=== PATIENT | male | born 1990 ===

== ENCOUNTER 2016-07-07 23:58 | Inpatient (IN) | payer OTHER ==
[2016-07-08 01:18] VITALS: BMI 22.4
[2016-07-08] MEDS ORDERED: Sodium Chloride 0.9% 1,000 ML IV STA (01:22)
[2016-07-08] MEDS ORDERED: Morphine 4 mg/ml ISec IVP STA ×2 (01:22→04:22)
[2016-07-08] MEDS ORDERED: Vancomycin 500 mg Inj IVPB STA (01:22)
[2016-07-08] MEDS ORDERED: Ampicillin/Sulbactam 3 GM in Sodium Chloride 0.9% 100 ML IVPB STA (01:22)
[2016-07-08] MEDS ORDERED: Vancomycin 1gm in NS 250ml 250 ML IVPB STA (01:29)
--- NOTE | 2016-07-08 01:29 | ED PDOC ---
Arrival/HPI - General Chief Complaint: Abnormal Skin Integrity Time Seen by Provider: 07/08/16 01:11 Historian: Patient - History of Present Illness Narrative History of Present Illness (Text): 07/08/16 01:22 Gumaro Ann is a 25 year old male, with no significant past medical history, presents to the emergency department complaining of 2 day duration of abscesses to b/l buttock region. Reports of redness and pain to the area which is worsened while sitting down. 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 He also complaining of swelling of inguinal lymph nodes. Denies any swelling to the penis or the scrotum. Denies fever, chills, headache, nausea, vomiting, diarrhea, or any other complaints at this time. Time/Duration: < week (2 days ) Symptom Onset: Gradual Symptom Course: Worsening Severity Level: Moderate Activities at Onset: Light Past Medical History - Provider Review Nursing Documentation Reviewed: Yes - Psychiatric Hx Substance Use: No Family/Social History - Physician Review Nursing Documentation Reviewed: Yes Family/Social History: No Known Family HX Smoking Status: Never Smoked Hx Alcohol Use: No Hx Substance Use: No Allergies/Home Meds Allergies/Adverse Reactions: Allergies No Known Allergies Allergy (Verified 07/08/16 11:45) Home Medications: Home Meds Medication Instructions Recorded Confirmed No Known Home Med 07/08/16 07/08/16 Review of Systems - Physician Review All systems were reviewed & negative as marked: Yes - Review of Systems Constitutional: Normal. absent: Fatigue, Fevers Respiratory: Normal. absent: SOB, Cough Gastrointestinal: Normal. absent: Abdominal Pain, Diarrhea, Nausea, Vomiting Musculoskeletal: Other (b/l buttock abscesses ) Neurological: Normal. absent: Headache, Dizziness Psychiatric: Normal Physical Exam Vital Signs Reviewed: Yes Vital Signs Temp Pulse Resp BP Pulse Ox 07/08/16 05:49 85 18 106/60 95 07/08/16 04:15 105 H 12 132/75 96 07/08/16 03:15 92 H 14 97/51 L 99 07/08/16 01:15 100.2 F H 100 H 18 128/63 99 Temperature: Afebrile Blood Pressure: Normal Pulse: Tachycardic Respiratory Rate: Normal Appearance: Positive for: Well-Appearing, Non-Toxic, Comfortable Pain Distress: None Mental Status: Positive for: Alert and Oriented X 3 - Systems Exam Head: Present: Atraumatic, Normocephalic Pupils: Present: PERRL Conjunctiva: Present: Normal Respiratory/Chest: Present: Clear to Auscultation, Good Air Exchange. No: Respiratory Distress, Accessory Muscle Use Cardiovascular: Present: Regular Rate and Rhythm, Normal S1, S2. No: Murmurs Upper Extremity: Present: Other (area of 12 cm diameter erythema with central draining punctum on b/l buttock ) Neurological: Present: GCS=15, CN II-XII Intact, Speech Normal Skin: Present: Warm, Dry, Normal Color. No: Rashes Psychiatric: Present: Alert, Oriented x 3, Normal Insight, Normal Concentration Medical Decision Making ED Course and Treatment: 07/08/16 01:32 Impression: A 25 year old male who presents to the emergency department complaining of abscesses to bilateral buttocks. Plan: -- Labs -- Morphine -- IV fluids -- Unasyn -- Vancomycin -- Blood culture -- Reassess and disposition Progress Notes: 07/08/16 03:50 Case discussed with who accepts patient under his service with on consult. 07/08/16 04:21 Procedure: Incision & Drainage Performed by the emergency provider Indication: Abscess Location: buttock Preparation: The area was prepped and draped in the usual sterile fashion and was cleansed with chlorhexidine. Local infiltration of Lidocaine 1% with Epi was used for anesthesia. Procedure: The most fluctuant portion of the abscess was incised with a #11 scalpel. Large amt purulent drainage. A dressing was applied Post-Procedure: On exam the abscess is notably less fluctuant. The patient tolerated the procedure well, and there were no complications. culture sent - Lab Interpretations Microbiology Results: Microbiology Results 07/08/16 02:17 Blood-Venous Blood Culture - Preliminary NO GROWTH AFTER 48 HOURS 07/08/16 01:42 Blood-Venous Blood Culture - Preliminary NO GROWTH AFTER 48 HOURS Lab Results: 07/08/16 01:42 07/08/16 01:42 Lab Results 07/08/16 01:42: WBC 20.9 H, RBC 4.47, Hgb 14.3, Hct 41.3 L, MCV 92.4, MCH 32.0, MCHC 34.6, RDW 13.1, Plt Count 208, MPV 9.2, Neutrophils % (Manual) 75 H, Band Neutrophils % 2, Lymphocytes % (Manual) 16 L, Monocytes % (Manual) 7 H, Platelet Evaluation Normal, pO2 30, VBG pH 7.35, VBG pCO2 51.0, VBG HCO3 28.2 H , VBG Total CO2 29.8 H, VBG O2 Sat (Calc) 59.0, VBG Base Excess 1.7, VBG Potassium 4.0, Glucose 110, Lactate 1.3, FiO2 21.0, Sodium 135.0, Potassium 4.1 , Chloride 102.0, Carbon Dioxide 28, Anion Gap 13, BUN 9, Creatinine 1.0, Est GFR ( Amer) > 60, Est GFR (Non-Af Amer) > 60, Random Glucose 110, Calcium 9.3, Total Bilirubin 0.9, AST 21, ALT 30, Alkaline Phosphatase 54, Total Protein 8.1, Albumin 4.4, Globulin 3.7, Albumin/Globulin Ratio 1.2, Venous Blood Potassium 4.0 - Medication Orders Current Medication Orders: Acetaminophen (Tylenol 325mg Tab) 650 mg PO Q4 PRN PRN Reason: Fever >100.4 F Last Admin: 07/09/16 06:08 Dose: 650 MG [facility] Pain/Vitals Document 07/09/16 06:08 STO (Rec: 07/09/16 06:09 [place] [id number]) Presence of Pain Presence of Pain Yes Pain Scale Used Pain Scale Used Numeric Location Left, Right or Bilateral Bilateral Description Constant Pain Behavior Facial Grimacing Re-Assess: [facility] Pain/Vitals Document 07/09/16 07:08 RADHA (Rec: 07/09/16 19:59 [place] [id number]) Pain Reassessment Is This A Pain ReAssessment? Yes Sleep Is patient sleeping during reassessment? No Presence of Pain Presence of Pain No Acetaminophen (Tylenol 325mg Tab) 650 mg PO Q4H PRN PRN Reason: Pain, moderate (4-7) Ampicillin Sodium/Sulbactam (Sodium 3 gm/ Sodium Chloride) 100 mls @ 200 mls/ hr IVPB Q6 MELISSA PRN Reason: Protocol Last Admin: 07/10/16 16:59 Dose: 200 MLS/HR eMAR Start Stop Document 07/10/16 16:59 RADHA (Rec: 07/10/16 17:00 RADHA [email or web address]) Intravenous Solution Start Date 07/10/16 Start Time 17:00 End Date 07/10/16 End time 17:30 Total Infusion Time 30 Vancomycin HCl (Vancomycin 1gm) 250 mls @ 167 mls/hr IVPB DAILY MELISSA PRN Reason: Protocol Last Admin: 07/10/16 09:00 Dose: 167 MLS/HR eMAR Start Stop Document 07/10/16 09:00 RADHA (Rec: 07/10/16 09:00 RADHA [email or web address]) Intravenous Solution Start Date 07/10/16 Start Time 09:00 End Date 07/10/16 End time 10:30 Total Infusion Time 90 Sodium Chloride (Sodium Chloride 0.9%) 1,000 mls @ 60 mls/hr IV .[id number] MELISSA Discontinued Medications Ampicillin Sodium/Sulbactam (Sodium 3 gm/ Sodium Chloride) 100 mls @ 100 mls/ hr IVPB STAT STA PRN Reason: Protocol Stop: 07/08/16 02:21 Last Admin: 07/08/16 03:54 Dose: 100 MLS/HR eMAR Start Stop Document 07/08/16 03:54 SB (Rec: 07/08/16 03:55 SB [id number]) Intravenous Solution Start Date 07/08/16 Start Time 03:54 End Date 07/08/16 Sodium Chloride (Sodium Chloride 0.9%) 1,000 mls @ 999 mls/hr IV .Q1H1M STA Stop: 07/08/16 02:22 Last Admin: 07/08/16 02:04 Dose: 999 MLS/HR eMAR Start Stop Document 07/08/16 02:04 SB (Rec: 07/08/16 02:04 SB [id number]) Intravenous Solution Start Date 07/08/16 Start Time 02:04 End Date 07/08/16 Vancomycin HCl (Vancomycin 1gm) 250 mls @ 167 mls/hr IVPB STAT STA Stop: 07/08/16 02:58 Last Admin: 07/08/16 02:04 Dose: 167 MLS/HR eMAR Start Stop Document 07/08/16 02:04 SB (Rec: 07/08/16 02:04 SB [id number]) Intravenous Solution Start Date 07/08/16 Start Time 02:04 End Date 07/08/16 Sodium Chloride (Sodium Chloride 0.9%) 1,000 mls @ 100 mls/hr IV .Q10H MELISSA Last Admin: 07/10/16 06:25 Dose: 100 MLS/HR eMAR Start Stop Document 07/10/16 06:25 STOCP (Rec: 07/10/16 06:25 [facility] Intravenous Solution Start Date 07/10/16 Start Time 06:25 Ketorolac Tromethamine (Toradol) 30 mg IVP STAT STA Stop: 07/10/16 08:23 Last Admin: 07/10/16 08:52 Dose: 30 MG MAR Pain Assessment Document 07/10/16 08:52 RADHA (Rec: 07/10/16 08:54 [place] [id number]) Pain Reassessment Is this a pain reassessment? No Sleep Is patient sleeping during reassessment? No Presence of Pain Presence of Pain Yes Pain Scale Used Pain Scale Used Numeric Location Left, Right or Bilateral Bilateral Description Description Constant Intensity of Pain at present 4 Acceptable Level of Pain 0 Pain Behavior Facial Grimacing Aggravating Factors Exercise/Activity Alleviating Factors/Management Medication Techniques IVP Administration Document 07/10/16 08:52 RADHA (Rec: 07/10/16 08:54 [place] [id number]) Charges for Administration # of IVP Administrations 1 Re-Assess: MAR Pain Assessment Document 07/10/16 09:52 RADHA (Rec: 07/10/16 19:35 [place] [id number]) Pain Reassessment Is this a pain reassessment? Yes Sleep Is patient sleeping during reassessment? No Presence of Pain Presence of Pain No Lidocaine/Epinephrine (Lidocaine 1%/Epinephrine 1:[id number] 30 Ml) 20 ml IJ STAT STA Stop: 07/08/16 02:10 Morphine Sulfate (Morphine) 4 mg IVP STAT STA Stop: 07/08/16 01:23 Last Admin: 07/08/16 02:03 Dose: 4 MG MAR Pain Assessment Document 07/08/16 02:03 SB (Rec: 07/08/16 02:04 SB [id number]) Pain Reassessment Is this a pain reassessment? No Sleep Is patient sleeping during reassessment? No Presence of Pain Presence of Pain Yes Pain Scale Used Pain Scale Used Numeric Location Upper or Lower Lower Pain Location Body Site Back Description Description Constant Intensity of Pain at present 7 IVP Administration Document 07/08/16 02:03 SB (Rec: 07/08/16 02:04 SB [id number]) Charges for Administration # of IVP Administrations 1 Morphine Sulfate (Morphine) 4 mg IVP STAT STA Stop: 07/08/16 04:23 Last Admin: 07/08/16 05:07 Dose: Not Given Non-Admin Reason: Patient Refused Pneumococcal Polyvalent Vaccine (Pneumovax 23 Vaccine) 0.5 ml IM .ONCE ONE Stop: 07/08/16 14:27 - Scribe Statement The provider has reviewed the documentation as recorded by the Jonathan Harper Provider Attestation: All medical record entries made by the Fatimahibsarkis were at my direction and personally dictated by me. I have reviewed the chart and agree that the record accurately reflects my personal performance of the history, physical exam, medical decision making, and the department course for this patient. I have also personally directed, reviewed, and agree with the discharge instructions and disposition. Disposition/Present on Arrival - Present on Arrival Any Indicators Present on Arrival: No History of DVT/PE: No History of Uncontrolled Diabetes: No Urinary Catheter: No History of Decub. Ulcer: No History Surgical Site Infection Following: None - Disposition Have Diagnosis and Disposition been Completed?: Yes Diagnosis: Cellulitis and abscess of buttock Disposition: HOSPITALIZED Disposition Time: 03:48 Patient Problems: Current Active Problems Problem Status Diagnosed Cellulitis and abscess of buttock Acute Condition: STABLE
[2016-07-08 02:00] LABS: HEMATOCRIT 41.3 % (42.0-52.0); MEAN CELL VOLUME 92.4 fL (80.0-105.0); MEAN CORPUSCULAR HGB CONC 34.6 g/dl (31.0-37.0); MEAN PLATELET VOLUME 9.2 fl (7.0-11.0); PLATELET COUNT 208 10^3/uL (120.0-450.0); RED CELL DISTRIBUTION WIDTH 13.1 % (11.5-14.5); WHITE BLOOD COUNT 20.9 10^3/ul (4.5-11.0)
[2016-07-08 02:05] LABS: ADD MANUAL DIFF? YES
[2016-07-08 02:06] LABS: VENOUS BLOOD GAS BASE EXCESS 1.7 mmol/L (0.0-2.0); VENOUS BLOOD PH 7.35 (7.32-7.43)
[2016-07-08 02:08] LABS: ALB/GLOB RATIO 1.2 (1.1-1.8); ALKALINE PHOSPHATASE 54 U/L (38-133); ALT/SGPT 30 U/L (7-56); AST/SGOT 21 U/L (15-59); BILIRUBIN,TOTAL 0.9 mg/dL (0.2-1.3); BLOOD UREA NITROGEN 9 mg/dL (7-21); CALCIUM 9.3 mg/dL (8.4-10.5); CARBON DIOXIDE 28 mmol/L (21-33); CHLORIDE 98 mmol/L (98-107); GFR AFRICAN-AMERICAN > 60; GLUCOSE,RANDOM 110 mg/dL (70-110); POTASSIUM 4.1 mmol/L (3.6-5.0); SODIUM 135 mmol/L (132-148); TOTAL PROTEIN 8.1 g/dL (5.8-8.3)
[2016-07-08] MEDS ORDERED: Lidocaine 1%/Epinephrine 1:100000 30 ml vial IJ STA (02:09)
[2016-07-08 02:35] LABS: BAND 2 % (0-2); NEUTROPHIL 75 % (50.0-70.0); PLATELET ESTIMATE NORMAL (NORMAL)
--- NOTE | 2016-07-08 04:12 | CP.PCM.HP ---
<Mark Contreras - Last Filed: 07/08/16 20:25> History of Present Illness - History of Present Illness History of Present Illness: cc: Buttock pain HPI: Patient is a 25yo male with no significant past medical history that presented to the ED c/o buttock pain that started 2 days prior. Patient reported that he had noticed small bumps on his buttocks that he presumed were pimples and would go away on their own. He reported that yesterday he noticed large abscesses on his buttocks that were tender to palpation and made it difficult for him to sit. Patient admitted to shaving in that area on a daily basis. He reported that today he could no longer tolerate the pain and came in for evaluation. He also reported swelling of his inguinal lymph nodes and blood stains on his underwear. He denied pain in his penis or scrotum, fevers, chills , nausea, vomiting, dysuria, frequency, urgency, chest pain, palpitations, SOB. In the ED, he was noted to have a temperature of 100.2, heart rate of 100bpm and leukocytosis of 20.9. 12point ROS as per HPI otherwise negative PMHx: None PSHx: None Allergies: NKDA Family Hx: Noncontributory Social Hx: Former smoker (~5-6cig/day for 4-5 yrs); Social alcohol use; Denies illicit drugs Medications: None Present on Admission - Present on Admission Any Indicators Present on Admission: No Past Patient History - Past Social History Smoking Status: Never Smoked - PSYCHIATRIC Hx Substance Use: No - SURGICAL HISTORY Hx Surgeries: No Meds Allergies/Adverse Reactions: Allergies Allergy/AdvReac Type Severity Reaction Status Date / Time No Known Allergies Allergy Verified 07/08/16 11:45 Physical Exam - Constitutional Appears: Non-toxic, No Acute Distress - Head Exam Head Exam: ATRAUMATIC, NORMAL INSPECTION, NORMOCEPHALIC - Eye Exam Eye Exam: EOMI, PERRL. absent: Conjunctival injection, Scleral icterus - ENT Exam ENT Exam: Mucous Membranes Moist - Neck Exam Neck exam: Positive for: Normal Inspection. Negative for: Lymphadenopathy, Tenderness, Thyromegaly - Respiratory Exam Respiratory Exam: Clear to Auscultation Bilateral. absent: Rales, Rhonchi, Wheezes - Cardiovascular Exam Cardiovascular Exam: RRR, +S1, +S2. absent: Tachycardia, Diastolic murmur, Gallop, JVD, Rubs, Systolic Murmur - GI/Abdominal Exam GI & Abdominal Exam: Normal Bowel Sounds, Soft. absent: Distended, Firm, Guarding, Rebound, Rigid, Tenderness - Extremities Exam Extremities exam: Positive for: normal inspection. Negative for: calf tenderness, pedal edema, tenderness - Back Exam Back exam: NORMAL INSPECTION - Neurological Exam Neurological exam: Alert, CN II-XII Intact, Oriented x3 - Skin Additional comments: multiple indurated, erythematous abscesses on buttocks bilaterally with central draining punctum measuring approximately 5-10 cm in diameter Results - Vital Signs Recent Vital Signs: Last Vital Signs Temp 100.2 F H 07/08/16 01:15 Pulse 100 H 07/08/16 01:15 Resp 18 07/08/16 01:15 BP 128/63 07/08/16 01:15 Pulse Ox 99 07/08/16 01:15 - Labs Result Diagrams: 07/08/16 01:42 07/08/16 01:42 Labs: Laboratory Results - last 24 hr 07/08/16 01:42 WBC 20.9 H RBC 4.47 Hgb 14.3 Hct 41.3 L MCV 92.4 MCH 32.0 MCHC 34.6 RDW 13.1 Plt Count 208 MPV 9.2 Neutrophils % (Manual) 75 H Band Neutrophils % 2 Lymphocytes % (Manual) 16 L Monocytes % (Manual) 7 H Platelet Evaluation Normal pO2 30 VBG pH 7.35 VBG pCO2 51.0 VBG HCO3 28.2 H VBG Total CO2 29.8 H VBG O2 Sat (Calc) 59.0 VBG Base Excess 1.7 VBG Potassium 4.0 Sodium 135 Chloride 98 Glucose 110 Lactate 1.3 FiO2 21.0 Potassium 4.1 Carbon Dioxide 28 Anion Gap 13 BUN 9 Creatinine 1.0 Est GFR ( Amer) > 60 Est GFR (Non-Af Amer) > 60 Random Glucose 110 Calcium 9.3 Total Bilirubin 0.9 AST 21 ALT 30 Alkaline Phosphatase 54 Total Protein 8.1 Albumin 4.4 Globulin 3.7 Albumin/Globulin Ratio 1.2 Venous Blood Potassium 4.0 Assessment & Plan - Assessment and Plan (Free Text) Assessment: 25yo male with no significant past medical history presents c/o multiple buttock abscesses Plan: 1. Buttock abscesses -WBC count of 20.9; temperature of 100.2F -lactate within normal limits -Tylenol 650mg PO q4h PRN for fevers -Patient started on Unasyn 3g IV q6h and Vancomycin 1g qD -Surgery consulted - Dr. Sena -IV NS @ 100/hr Patient to be seen and discussed with attending, Dr. Gu - Date & Time Date: 07/08/16 Time: 04:14 <José Miguel Gu - Last Filed: 08/05/16 09:53> Results - Vital Signs Recent Vital Signs: Last Vital Signs Temp 97.7 F 07/12/16 07:51 Pulse 74 07/12/16 07:51 Resp 20 07/12/16 07:51 BP 105/70 07/12/16 07:51 Pulse Ox 100 07/12/16 07:51 - Labs Result Diagrams: 07/11/16 06:00 07/11/16 06:00 Attending/Attestation - Attestation I have personally seen and examined this patient.: Yes I have fully participated in the care of the patient.: Yes I have reviewed all pertinent clinical information: Yes Notes (Text): 08/05/16 09:53 Medical record note made by the resident after discussion with my direction and input after the patient was personally seen and examined by me. I have reviewed the chart and agree that the record accurately reflects by personal performance of the history, physical exam, data review, and medical decision-making, in the course for the patient. I have also personally directed the plan of care.
[2016-07-08] MEDS: Sodium Chloride 0.9% 1,000 ML IV SCH ×2 (05:07→20:06)
[2016-07-08 05:19] LABS: URINE BILIRUBIN NEGATIVE (NEGATIVE); URINE BLOOD NEGATIVE (NEGATIVE); URINE GLUCOSE (UA) NEGATIVE (NEGATIVE); URINE KETONE TRACE mg/dL (NEGATIVE); URINE LEUKOCYTE ESTERASE NEGATIVE Leu/uL (NEGATIVE); URINE PROTEIN NEGATIVE mg/dL (<30 mg/dL); URINE UROBILINOGEN 0.2 E.U./dL (<1 E.U./dL)
[2016-07-08 05:24] LABS: URINE APPEARANCE CLEAR (CLEAR); URINE COLOR YELLOW (YELLOW)
--- NOTE | 2016-07-08 06:08 | CP.PCM.CON ---
<Dontrell Braun - Last Filed: 07/08/16 05:58> History of Present Illness - History of Present Illness History of Present Illness: General Surgery Consult Note for Dr. Sena CC: Buttock lesion X 2 days HPI: This is a 25M with no PMH who presents to the ED due to painfull swelling on his buttock bilaterally. He reports that it started like a pimple and that yesterday it became increasingly painful. He denies any similar events in the past. He denies any spontaneous draining, denies any fevers chills, chest pain, or SOB at home. In the ED, he had a T100.2, heart rate of 100bpm and leukocytosis of 20.9, the patients buttock wounds were incised and drained in the emergency room by the time the patient was examined. PMHx: None PSHx: None Allergies: NKDA Family Hx: Noncontributory Social Hx: Denies Drugs, Tobacco, Etoh Medications: None Review of Systems - Constitutional Constitutional: absent: Anorexia, Chills - EENT Eyes: absent: Blind Spots, Blurred Vision, Change in Vision Ears: absent: Ear Discharge, Ear Pain, Tinnitus Nose/Mouth/Throat: absent: Nasal Congestion, Nasal Discharge - Cardiovascular Cardiovascular: absent: Chest Pain, Dyspnea - Respiratory Respiratory: absent: Dyspnea, Hemoptysis - Gastrointestinal Gastrointestinal: absent: Bloating, Loose Stools - Neurological Neurological: absent: Abnormal Hearing - Psychiatric Psychiatric: absent: Anxiety Past Patient History - Past Social History Smoking Status: Never Smoked - PSYCHIATRIC Hx Substance Use: No - SURGICAL HISTORY Hx Surgeries: No Meds Allergies/Adverse Reactions: Allergies Allergy/AdvReac Type Severity Reaction Status Date / Time No Known Allergies Allergy Verified 07/08/16 11:45 - Medications Medications: Current Medications Acetaminophen (Tylenol 325mg Tab) 650 mg PO Q4 PRN PRN Reason: Fever >100.4 F Sodium Chloride (Sodium Chloride 0.9%) 1,000 mls @ 100 mls/hr IV .Q10H [facility] Last Admin: 07/08/16 05:07 Dose: 100 mls/hr Ampicillin Sodium/Sulbactam (Sodium 3 gm/ Sodium Chloride) 100 mls @ 200 mls/ hr IVPB Q6 MELISSA PRN Reason: Protocol Vancomycin HCl (Vancomycin 1gm) 250 mls @ 167 mls/hr IVPB DAILY MELISSA PRN Reason: Protocol Physical Exam - Constitutional Appears: Non-toxic, No Acute Distress - Head Exam Head Exam: ATRAUMATIC, NORMOCEPHALIC - Eye Exam Eye Exam: EOMI, Normal appearance - ENT Exam ENT Exam: Mucous Membranes Moist, Normal Exam - Respiratory Exam Respiratory Exam: NORMAL BREATHING PATTERN - Cardiovascular Exam Cardiovascular Exam: +S1, +S2 - Neurological Exam Neurological exam: Alert, Oriented x3 - Psychiatric Exam Psychiatric exam: Normal Affect, Normal Mood - Skin Skin Exam: Dry, Intact Results - Vital Signs Recent Vital Signs: Last Vital Signs Temp 100.2 F H 07/08/16 01:15 Pulse 85 07/08/16 05:49 Resp 18 07/08/16 05:49 BP 106/60 07/08/16 05:49 Pulse Ox 95 07/08/16 05:49 - Labs Result Diagrams: 07/08/16 01:42 07/08/16 01:42 Labs: Laboratory Results - last 24 hr 07/08/16 05:00 Urine Color Yellow Urine Appearance Clear Urine pH 6.0 Ur Specific Bradley 1.020 Urine Protein Negative Urine Glucose (UA) Negative Urine Ketones Trace H Urine Blood Negative Urine Nitrate Negative Urine Bilirubin Negative Urine Urobilinogen 0.2 Ur Leukocyte Esterase Negative Urine Opiates Screen Positive H Urine Methadone Screen Negative Ur Barbiturates Screen Negative Ur Phencyclidine Scrn Negative Ur Amphetamines Screen Negative U Benzodiazepines Scrn Negative U Oth Cocaine Metabols Negative U Cannabinoids Screen Positive H Assessment & Plan - Assessment and Plan (Free Text) Assessment: This is a 25M with no PMH presenting with b/l gluteal abscesses s/p bedside I&D by ER No surgical management at this time Continue medical managment per primary team Will Discuss with Dr. Nathen Braun PGY-1 <Rolando Sena - Last Filed: 07/11/16 10:16> Meds - Medications Medications: Current Medications Acetaminophen (Tylenol 325mg Tab) 650 mg PO Q4 PRN PRN Reason: Fever >100.4 F Last Admin: 07/09/16 06:08 Dose: 650 mg Acetaminophen (Tylenol 325mg Tab) 650 mg PO Q4H PRN PRN Reason: Pain, moderate (4-7) Last Admin: 07/11/16 08:14 Dose: 650 mg Ampicillin Sodium/Sulbactam (Sodium 3 gm/ Sodium Chloride) 100 mls @ 200 mls/ hr IVPB Q6 MELISSA PRN Reason: Protocol Last Admin: 07/11/16 05:42 Dose: 200 mls/hr Vancomycin HCl (Vancomycin 1gm) 250 mls @ 167 mls/hr IVPB DAILY MELISSA PRN Reason: Protocol Last Admin: 07/11/16 09:34 Dose: 167 mls/hr Results - Vital Signs Recent Vital Signs: Last Vital Signs Temp 97.8 F 07/11/16 07:20 Pulse 57 L 07/11/16 07:20 Resp 20 07/11/16 07:20 BP 148/85 07/11/16 07:20 Pulse Ox 99 07/11/16 07:20 - Labs Result Diagrams: 07/11/16 06:00 07/11/16 06:00 Labs: Laboratory Results - last 24 hr 07/11/16 06:00 WBC 8.7 RBC 4.34 Hgb 13.6 L Hct 39.8 L MCV 91.7 MCH 31.3 MCHC 34.2 RDW 12.9 Plt Count 242 MPV 9.5 Sodium 141 Potassium 4.0 Chloride 105 Carbon Dioxide 25 Anion Gap 15 BUN 13 Creatinine 1.0 Est GFR ( Amer) > 60 Est GFR (Non-Af Amer) > 60 Random Glucose 87 Calcium 9.1 Total Bilirubin 0.4 AST 23 ALT 32 Alkaline Phosphatase 49 Total Protein 6.8 Albumin 3.5 Globulin 3.3 Albumin/Globulin Ratio 1.1 Assessment & Plan - Assessment and Plan (Free Text) Assessment: Dx Bilateral buttock abscess-cellulitis(Drained & C/S done) Conservative Rx-await Micro c/s Consult done under my direct supervision Jovanna Sean MD FACS
[2016-07-08 08:08] LABS: ADD MANUAL DIFF? NO
[2016-07-08 08:18] LABS: BASO # 0.04 K/mm3 (0.0-2.0); BASO % 0.2 % (0.0-3.0); EOS # 0.1 (0.0-0.7); EOS % 0.5 % (1.5-5.0); GRAN # 15.11 (1.4-6.5); HEMATOCRIT 39.3 % (42.0-52.0); LYMPH # 1.9 (1.2-3.4); LYMPH % 9.6 % (22.0-35.0); MEAN CELL VOLUME 92.3 fL (80.0-105.0); MEAN CORPUSCULAR HEMOGLOBIN 31.5 pg (25.0-35.0); MEAN CORPUSCULAR HGB CONC 34.1 g/dl (31.0-37.0); MEAN PLATELET VOLUME 9.3 fl (7.0-11.0); MONO # 2.3 (0.1-0.6); MONO % 11.7 % (1.0-6.0); PLATELET COUNT 193 10^3/uL (120.0-450.0); RED CELL DISTRIBUTION WIDTH 13.2 % (11.5-14.5); WHITE BLOOD COUNT 19.4 10^3/ul (4.5-11.0)
[2016-07-08 08:34] LABS: ALB/GLOB RATIO 1.2 (1.1-1.8); ALKALINE PHOSPHATASE 47 U/L (38-133); ALT/SGPT 28 U/L (7-56); AST/SGOT 21 U/L (15-59); BILIRUBIN,TOTAL 1.1 mg/dL (0.2-1.3); BLOOD UREA NITROGEN 7 mg/dL (7-21); CALCIUM 8.9 mg/dL (8.4-10.5); CARBON DIOXIDE 26 mmol/L (21-33); CHLORIDE 103 mmol/L (98-107); GFR AFRICAN-AMERICAN > 60; GLUCOSE,RANDOM 104 mg/dL (70-110); POTASSIUM 4.4 mmol/L (3.6-5.0); SODIUM 137 mmol/L (132-148); TOTAL PROTEIN 7.1 g/dL (5.8-8.3)
[2016-07-08] MEDS: Ampicillin/Sulbactam 3 GM in Sodium Chloride 0.9% 100 ML IVPB SCH ×2 (11:09→17:52)
--- NOTE | 2016-07-08 12:19 | CT ---
CT pelvis without IV contrast Indication: Abscess Technique: Contiguous axial images of the pelvis. No oral or IV contrast given. Coronal and Sagittal reformats generated and reviewed. This CT exam was performed using 1 or more of the falling dose reduction techniques: Automated exposure control, adjustment of the MAA and/or kV according to patient size, and/or use of iterative reconstruction technique. Radiation dose: Total exam DLP = 622.13 mGy-cm. Comparison: None available Findings: The included unenhanced bowel loops appear within normal limits of caliber without evidence of intestinal obstruction. There is no definite free air. Prostate gland measures approximately 3.1 x 4.3 cm. The urinary bladder appears unremarkable. Subcutaneous edema/ cellulitis involving the subcutaneous soft tissues of the right buttock. Subcutaneous edema/cellulitis involving the subcutaneous soft tissues of the lateral left pelvis. No drainable fluid collection or abscess appreciated. No acute osseous abnormality is detected. Impression: Subcutaneous edema/ cellulitis involving the subcutaneous soft tissues of the right buttock. Subcutaneous edema/cellulitis involving the subcutaneous soft tissues of the lateral left pelvis. No drainable fluid collection or abscess appreciated.
[2016-07-08] MEDS ORDERED: Pneumococcal 23-Valent Vaccine IM ONE (14:26)
[2016-07-08] MEDS: Vancomycin 1gm in NS 250ml 250 ML IVPB SCH (15:08)
--- NOTE | 2016-07-08 15:08 | CP.PCM.PCO ---
Physician Communication Note - Physician Communication Note Physician Communication Note: Jamie buttock cellulitis/Abscess(drained)-No further surgery now
[2016-07-09] MEDS: Ampicillin/Sulbactam 3 GM in Sodium Chloride 0.9% 100 ML IVPB SCH ×4 (00:05→17:22)
[2016-07-09] MEDS: Sodium Chloride 0.9% 1,000 ML IV SCH ×2 (06:11→20:47)
[2016-07-09 06:49] LABS: ADD MANUAL DIFF? NO
[2016-07-09 07:03] LABS: ALB/GLOB RATIO 1.1 (1.1-1.8); ALKALINE PHOSPHATASE 49 U/L (38-133); ALT/SGPT 33 U/L (7-56); AST/SGOT 25 U/L (15-59); BILIRUBIN,TOTAL 0.9 mg/dL (0.2-1.3); BLOOD UREA NITROGEN 8 mg/dL (7-21); CALCIUM 8.9 mg/dL (8.4-10.5); CARBON DIOXIDE 27 mmol/L (21-33); CHLORIDE 103 mmol/L (98-107); GFR AFRICAN-AMERICAN > 60; GLUCOSE,RANDOM 90 mg/dL (70-110); POTASSIUM 3.9 mmol/L (3.6-5.0); SODIUM 138 mmol/L (132-148); TOTAL PROTEIN 7.2 g/dL (5.8-8.3)
[2016-07-09 07:17] LABS: BASO # 0.04 K/mm3 (0.0-2.0); BASO % 0.3 % (0.0-3.0); EOS # 0.5 (0.0-0.7); EOS % 3.4 % (1.5-5.0); GRAN # 10.07 (1.4-6.5); GRAN % 71.7 % (50.0-68.0); LYMPH # 1.8 (1.2-3.4); LYMPH % 12.8 % (22.0-35.0); MEAN CELL VOLUME 93.9 fL (80.0-105.0); MEAN CORPUSCULAR HEMOGLOBIN 31.7 pg (25.0-35.0); MEAN CORPUSCULAR HGB CONC 33.8 g/dl (31.0-37.0); MEAN PLATELET VOLUME 9.6 fl (7.0-11.0); MONO # 1.7 (0.1-0.6); MONO % 11.8 % (1.0-6.0); PLATELET COUNT 212 10^3/uL (120.0-450.0); RED CELL DISTRIBUTION WIDTH 13.3 % (11.5-14.5); WHITE BLOOD COUNT 14.1 10^3/ul (4.5-11.0)
--- NOTE | 2016-07-09 10:17 | CP.PCM.PN ---
Subjective - Date & Time of Evaluation Date of Evaluation: 07/09/16 Time of Evaluation: 09:00 - Subjective Subjective: GENERAL SURGERY PROGRESS NOTE FOR DR. FORREST Objective - Vital Signs/Intake and Output Vital Signs (last 24 hours): Temp Pulse Resp BP Pulse Ox 98.5 F 72 20 102/58 L 99 07/09/16 07:54 07/09/16 07:54 07/09/16 07:54 07/09/16 07:54 07/09/16 07:54 Intake and Output: 07/09/16 07/09/16 06:59 18:59 Intake Total 3060 Output Total 1350 Balance 1710 - Medications Medications: Current Medications Acetaminophen (Tylenol 325mg Tab) 650 mg PO Q4 PRN PRN Reason: Fever >100.4 F Last Admin: 07/09/16 06:08 Dose: 650 mg Acetaminophen (Tylenol 325mg Tab) 650 mg PO Q4H PRN PRN Reason: Pain, moderate (4-7) Sodium Chloride (Sodium Chloride 0.9%) 1,000 mls @ 100 mls/hr IV .Q10H MELISSA Last Admin: 07/09/16 06:11 Dose: 100 mls/hr Ampicillin Sodium/Sulbactam (Sodium 3 gm/ Sodium Chloride) 100 mls @ 200 mls/ hr IVPB Q6 MELISSA PRN Reason: Protocol Last Admin: 07/09/16 05:57 Dose: 200 mls/hr Vancomycin HCl (Vancomycin 1gm) 250 mls @ 167 mls/hr IVPB DAILY MELISSA PRN Reason: Protocol Last Admin: 07/08/16 15:08 Dose: 167 mls/hr - Labs Labs: 07/09/16 06:47 07/09/16 06:47 - Constitutional Appears: Non-toxic, No Acute Distress - Head Exam Head Exam: ATRAUMATIC, NORMAL INSPECTION - Eye Exam Eye Exam: EOMI, Normal appearance - Respiratory Exam Respiratory Exam: NORMAL BREATHING PATTERN. absent: Respiratory Distress - Cardiovascular Exam Cardiovascular Exam: +S1, +S2 - GI/Abdominal Exam GI & Abdominal Exam: Soft. absent: Tenderness - Neurological Exam Neurological Exam: Alert, Awake, Oriented x3 - Psychiatric Exam Psychiatric exam: Normal Affect, Normal Mood - Skin Additional comments: Right and left buttock each with abscess and surrounding erythema/cellulitis. Purulent drainage expressed from both abscesses. Assessment and Plan - Assessment and Plan (Free Text) Assessment: 25yo M with bilateral buttock abscesses/cellulitis - Leukocytosis decreasing, WBC 14.1 today - Continue Abx - Purulent drainage was able to be expressed from both areas today on exam. Wound cx taken of each side - Will discuss with Dr. Nathen Wells PGY-2
--- NOTE | 2016-07-09 10:50 | CP.PCM.PN ---
<Yamileth Samuels - Last Filed: 07/09/16 10:50> Subjective - Date & Time of Evaluation Date of Evaluation: 07/09/16 Time of Evaluation: 10:48 - Subjective Subjective: PGY-1 Medicine progress note Patient seen and examined at bedside. No acute distress. Nurse reports no acute events overnight. Patients pain was controlled with tylenol overnight. Patient states that his pain is improved but he continues to have soreness especially with movement. He denies fever, chills, n/v/d/c. Objective - Vital Signs/Intake and Output Vital Signs (last 24 hours): Temp Pulse Resp BP Pulse Ox 98.5 F 72 20 102/58 L 99 07/09/16 07:54 07/09/16 07:54 07/09/16 07:54 07/09/16 07:54 07/09/16 07:54 Intake and Output: 07/09/16 07/09/16 06:59 18:59 Intake Total 3060 Output Total 1350 Balance 1710 - Medications Medications: Current Medications Acetaminophen (Tylenol 325mg Tab) 650 mg PO Q4 PRN PRN Reason: Fever >100.4 F Last Admin: 07/09/16 06:08 Dose: 650 mg Acetaminophen (Tylenol 325mg Tab) 650 mg PO Q4H PRN PRN Reason: Pain, moderate (4-7) Sodium Chloride (Sodium Chloride 0.9%) 1,000 mls @ 100 mls/hr IV .Q10H MELISSA Last Admin: 07/09/16 06:11 Dose: 100 mls/hr Ampicillin Sodium/Sulbactam (Sodium 3 gm/ Sodium Chloride) 100 mls @ 200 mls/ hr IVPB Q6 MELISSA PRN Reason: Protocol Last Admin: 07/09/16 05:57 Dose: 200 mls/hr Vancomycin HCl (Vancomycin 1gm) 250 mls @ 167 mls/hr IVPB DAILY MELISSA PRN Reason: Protocol Last Admin: 07/08/16 15:08 Dose: 167 mls/hr - Labs Labs: 07/09/16 06:47 07/09/16 06:47 - Constitutional Appears: Well, No Acute Distress - Head Exam Head Exam: ATRAUMATIC, NORMOCEPHALIC - Eye Exam Eye Exam: Normal appearance - ENT Exam ENT Exam: Mucous Membranes Moist - Respiratory Exam Respiratory Exam: Clear to Ausculation Bilateral, NORMAL BREATHING PATTERN. absent: Decreased Breath Sounds, Rhonchi, Wheezes, Respiratory Distress - Cardiovascular Exam Cardiovascular Exam: REGULAR RHYTHM. absent: Tachycardia, Murmur - GI/Abdominal Exam GI & Abdominal Exam: Soft, Normal Bowel Sounds. absent: Distended, Firm, Guarding, Rigid, Tenderness - Extremities Exam Extremities Exam: Normal Inspection. absent: Pedal Edema - Neurological Exam Neurological Exam: Alert, Awake, Oriented x3 - Skin Skin Exam: Dry, Intact, Normal Color, Warm - Additional Findings Additional findings: Right and left buttock each with abscess, s/p I&D with surrounding erythema/ cellulitis. Purulent drainage expressed from both abscesses. dressing changed per surgery Assessment and Plan - Assessment and Plan (Free Text) Assessment: 25yo male with no significant past medical history presents with multiple buttock abscesses, mild fever and leukocytosis. Abscesses s/p I&D. CT pelvis showed cellulitis of right buttock, and lateral left pelvis. Plan: 1. Buttock abscesses, bilateral - WBC count on admission was 20.9 with mild fever, WBC decreased to 14 - lactate within normal limits - Tylenol 650mg PO q4h PRN for pain - cont IV Unasyn 3g q6h and Vancomycin 1g qD - IV NS @ 100/hr - CT pelvis showed cellulitis of right buttock, and lateral left pelvis - warm compresses - Surgery following- Dr. Sena <José Miguel Gu - Last Filed: 08/05/16 09:30> Objective - Vital Signs/Intake and Output Vital Signs (last 24 hours): Temp Pulse Resp BP Pulse Ox 97.7 F 74 20 105/70 100 07/12/16 07:51 07/12/16 07:51 07/12/16 07:51 07/12/16 07:51 07/12/16 07:51 - Labs Labs: 07/11/16 06:00 07/11/16 06:00 Attending/Attestation - Attestation I have personally seen and examined this patient.: Yes I have fully participated in the care of the patient.: Yes I have reviewed all pertinent clinical information, including history, physical exam and plan: Yes Notes (Text): 08/05/16 09:30 Medical record note made by the resident after discussion with my direction and input after the patient was personally seen and examined by me. I have reviewed the chart and agree that the record accurately reflects by personal performance of the history, physical exam, data review, and medical decision-making, in the course for the patient. I have also personally directed the plan of care.
[2016-07-09] MEDS: Vancomycin 1gm in NS 250ml 250 ML IVPB SCH (12:23)
--- NOTE | 2016-07-10 00:40 | CP.PCM.PN ---
Subjective - Date & Time of Evaluation Date of Evaluation: 07/10/16 Time of Evaluation: 00:37 - Subjective Subjective: SURGERY NOTE FOR DR. FORREST 25M seen and examined at bedside. Patient continues to admit to pain in the buttock bilaterally. denies fevers, chills. Objective - Vital Signs/Intake and Output Vital Signs (last 24 hours): Temp Pulse Resp BP Pulse Ox 98.4 F 71 18 125/74 98 07/09/16 16:33 07/09/16 16:33 07/09/16 16:33 07/09/16 16:33 07/09/16 16:33 Intake and Output: 07/09/16 07/10/16 18:59 06:59 Intake Total 640 Output Total 420 2600 Balance -420 -1960 - Medications Medications: Current Medications Acetaminophen (Tylenol 325mg Tab) 650 mg PO Q4 PRN PRN Reason: Fever >100.4 F Last Admin: 07/09/16 06:08 Dose: 650 mg Acetaminophen (Tylenol 325mg Tab) 650 mg PO Q4H PRN PRN Reason: Pain, moderate (4-7) Sodium Chloride (Sodium Chloride 0.9%) 1,000 mls @ 100 mls/hr IV .Q10H [facility] Last Admin: 07/09/16 20:47 Dose: 100 mls/hr Ampicillin Sodium/Sulbactam (Sodium 3 gm/ Sodium Chloride) 100 mls @ 200 mls/ hr IVPB Q6 MELISSA PRN Reason: Protocol Last Admin: 07/10/16 00:00 Dose: 200 mls/hr Vancomycin HCl (Vancomycin 1gm) 250 mls @ 167 mls/hr IVPB DAILY MELISSA PRN Reason: Protocol Last Admin: 07/09/16 12:23 Dose: 167 mls/hr - Labs Labs: 07/09/16 06:47 07/09/16 06:47 - Constitutional Appears: Non-toxic, No Acute Distress - Head Exam Head Exam: ATRAUMATIC - Respiratory Exam Respiratory Exam: Clear to Ausculation Bilateral, NORMAL BREATHING PATTERN - Cardiovascular Exam Cardiovascular Exam: REGULAR RHYTHM, +S1, +S2 - GI/Abdominal Exam GI & Abdominal Exam: Soft. absent: Distended, Firm, Guarding, Rigid, Tenderness , Rebound - Rectal Exam Additional comments: b/l draining buttock abscess. pus and blood draining, dressing changed. Assessment and Plan - Assessment and Plan (Free Text) Assessment: 25yo M with bilateral buttock abscesses/cellulitis, draining pus and blood - f/u WBC - Continue Abx - wound care, dressing change, monitor cellulitis Further recs discuss with Dr. Nathen Woods, PGY1
[2016-07-10] MEDS: Ampicillin/Sulbactam 3 GM in Sodium Chloride 0.9% 100 ML IVPB SCH ×4 (05:36→16:59)
[2016-07-10] MEDS: Sodium Chloride 0.9% 1,000 ML IV SCH (06:25)
[2016-07-10 07:07] LABS: ADD MANUAL DIFF? NO
[2016-07-10 07:20] LABS: BASO # 0.05 K/mm3 (0.0-2.0); BASO % 0.5 % (0.0-3.0); EOS # 0.5 (0.0-0.7); EOS % 4.9 % (1.5-5.0); GRAN # 5.95 (1.4-6.5); GRAN % 62.7 % (50.0-68.0); HEMATOCRIT 39.2 % (42.0-52.0); MEAN CELL VOLUME 92.2 fL (80.0-105.0); MEAN CORPUSCULAR HEMOGLOBIN 31.3 pg (25.0-35.0); MEAN CORPUSCULAR HGB CONC 33.9 g/dl (31.0-37.0); MEAN PLATELET VOLUME 9.5 fl (7.0-11.0); MONO % 10.9 % (1.0-6.0); PLATELET COUNT 220 10^3/uL (120.0-450.0); RED CELL DISTRIBUTION WIDTH 13.1 % (11.5-14.5); WHITE BLOOD COUNT 9.5 10^3/ul (4.5-11.0)
[2016-07-10 07:33] LABS: ALB/GLOB RATIO 1.1 (1.1-1.8); ALKALINE PHOSPHATASE 50 U/L (38-133); ALT/SGPT 37 U/L (7-56); AST/SGOT 28 U/L (15-59); BILIRUBIN,TOTAL 0.5 mg/dL (0.2-1.3); BLOOD UREA NITROGEN 10 mg/dL (7-21); CALCIUM 9.1 mg/dL (8.4-10.5); CARBON DIOXIDE 28 mmol/L (21-33); CHLORIDE 103 mmol/L (95-110); GFR AFRICAN-AMERICAN > 60; GLUCOSE,RANDOM 89 mg/dL (70-110); POTASSIUM 3.9 mmol/L (3.6-5.0); SODIUM 138 mmol/L (132-148); TOTAL PROTEIN 7.1 g/dL (5.8-8.3)
[2016-07-10] MEDS: Vancomycin 1gm in NS 250ml 250 ML IVPB SCH (09:00)
[2016-07-10] MEDS ORDERED: Sodium Chloride 0.9% 1,000 ML IV SCH (12:22)
--- NOTE | 2016-07-10 12:54 | PN ---
DATE: 07/10/[address]ahan and Dr. Gu who are off today. He is comfortable in bed. He is getting IV antibiotics. He is feeling a little bit better, less swollen on each buttock, and there is still some drainage. PHYSICAL EXAMINATION: VITAL SIGNS: Temp 97.8, 71 pulse, 110/67 blood pressure, 20 respiratory rate, 98% O2 sat on room air. HEAD: Atraumatic, normocephalic. HEART: Regular rate. LUNGS: Clear to auscultation. ABDOMEN: Mouth is moist. NECK: Supple. EXTREMITIES: No edema. Both buttocks are bandaged. MEDICATIONS: He is currently on ampicillin, sulbactam IV fluids, which I will decrease from 100 mL an hour to 60. Tylenol and vancomycin IV. LABORATORY DATA: Last labs 9.5 white count - the best it has been, 13.3 hemoglobin, 39.2 hematocrit with 220 platelets. He has a 138 sodium, potassium 3.9. BUN is 10, creatinine 0.9. GFR is greater than 60. Sugar is 89. Calcium is 9.1. Total bili is 0.5. AST i. ALT is 37, alk phos Total protein 7.1. He is being seen by surgery. I will check his labs tomorrow. Decreased the IV fluids. I am going to get the okay from the surgeons. I am going to change it to p.o. We will discharge him, as per Dr. Gu and Dr. Callahan. Continue with aggressive treatment and care for bilateral abscess. Terry Robertson DO cc: [id number] TT: 07/10/2016 12:54:07 Confirmation # [id number] Dictation # [id number] [id number]
[2016-07-11] MEDS: Ampicillin/Sulbactam 3 GM in Sodium Chloride 0.9% 100 ML IVPB SCH ×3 (00:07→12:05)
[2016-07-11 06:12] LABS: HEMATOCRIT 39.8 % (42.0-52.0); MEAN CELL VOLUME 91.7 fL (80.0-105.0); MEAN CORPUSCULAR HEMOGLOBIN 31.3 pg (25.0-35.0); MEAN CORPUSCULAR HGB CONC 34.2 g/dl (31.0-37.0); MEAN PLATELET VOLUME 9.5 fl (7.0-11.0); RED CELL DISTRIBUTION WIDTH 12.9 % (11.5-14.5); WHITE BLOOD COUNT 8.7 10^3/ul (4.5-11.0)
[2016-07-11 06:44] LABS: ALB/GLOB RATIO 1.1 (1.1-1.8); ALKALINE PHOSPHATASE 49 U/L (38-133); ALT/SGPT 32 U/L (7-56); AST/SGOT 23 U/L (15-59); BILIRUBIN,TOTAL 0.4 mg/dL (0.2-1.3); BLOOD UREA NITROGEN 13 mg/dL (7-21); CALCIUM 9.1 mg/dL (8.4-10.5); CARBON DIOXIDE 25 mmol/L (21-33); CHLORIDE 105 mmol/L (95-110); GFR AFRICAN-AMERICAN > 60; GLUCOSE,RANDOM 87 mg/dL (70-110); SODIUM 141 mmol/L (132-148); TOTAL PROTEIN 6.8 g/dL (5.8-8.3)
[2016-07-11 07:22] VITALS: RESP 20
--- NOTE | 2016-07-11 08:37 | CP.PCM.PN ---
Subjective - Date & Time of Evaluation Date of Evaluation: 07/11/16 Time of Evaluation: 07:45 - Subjective Subjective: Surgery Progress note. Dr. Sena Pt seen and examined at bedside. No new events overnight. Still with pain at wound site, improving. No F/C. No N/V/D. Objective - Vital Signs/Intake and Output Vital Signs (last 24 hours): Temp Pulse Resp BP Pulse Ox 97.8 F 57 L 20 148/85 99 07/11/16 07:20 07/11/16 07:20 07/11/16 07:20 07/11/16 07:20 07/11/16 07:20 Intake and Output: 07/11/16 07/11/16 06:59 18:59 Intake Total 240 Output Total 500 Balance -260 - Medications Medications: Current Medications Acetaminophen (Tylenol 325mg Tab) 650 mg PO Q4 PRN PRN Reason: Fever >100.4 F Last Admin: 07/09/16 06:08 Dose: 650 mg Acetaminophen (Tylenol 325mg Tab) 650 mg PO Q4H PRN PRN Reason: Pain, moderate (4-7) Last Admin: 07/11/16 08:14 Dose: 650 mg Ampicillin Sodium/Sulbactam (Sodium 3 gm/ Sodium Chloride) 100 mls @ 200 mls/ hr IVPB Q6 MELISSA PRN Reason: Protocol Last Admin: 07/11/16 05:42 Dose: 200 mls/hr Vancomycin HCl (Vancomycin 1gm) 250 mls @ 167 mls/hr IVPB DAILY MELISSA PRN Reason: Protocol Last Admin: 07/10/16 09:00 Dose: 167 mls/hr Sodium Chloride (Sodium Chloride 0.9%) 1,000 mls @ 60 mls/hr IV .[id number] [facility] Last Admin: 07/10/16 21:42 Dose: 60 mls/hr - Labs Labs: 07/11/16 06:00 07/11/16 06:00 - Constitutional Appears: Well, No Acute Distress - Head Exam Head Exam: ATRAUMATIC, NORMAL INSPECTION, NORMOCEPHALIC - Eye Exam Eye Exam: EOMI, Normal appearance, PERRL - ENT Exam ENT Exam: Mucous Membranes Moist - Respiratory Exam Respiratory Exam: NORMAL BREATHING PATTERN - Cardiovascular Exam Cardiovascular Exam: absent: JVD - GI/Abdominal Exam GI & Abdominal Exam: Soft, Normal Bowel Sounds. absent: Tenderness - Extremities Exam Extremities Exam: Normal Inspection - Skin Additional comments: Bilateral draining buttock abscesses. Purulent and bloody drainage expressed. Dressings changed. Mild erythema. no induration Assessment and Plan - Assessment and Plan (Free Text) Assessment: 25yo M with left and right buttock abscess/cellulitis. - No leukocytosis. Afebrile - Wound Culture growing MRSA. - Contact precautions. - Continue ABX. ID consult noted - Wound care. Daily dressing changes. Will pack wound today - Encourage ambulation Will discuss case with Dr. Nathen Talavera PGY1 Surgery Pager: [phone]
[2016-07-11] MEDS: Vancomycin 1gm in NS 250ml 250 ML IVPB SCH ×2 (09:34→13:50)
--- NOTE | 2016-07-11 12:26 | PN ---
DATE: 07/11/2016 The patient still with pain in the buttock area. REVIEW OF SYSTEMS: Denies any chest pain, denies any shortness of breath and denies any changes in h is bowels. PHYSICAL EXAMINATION: VITAL SIGNS: Note a temperature of 98.6, pulse of 60, blood pressure from 119/74 148/85, respiration s 14. HEENT: Head is normocephalic, atraumatic. Conjunctivae are pink. Lids unremarkable. Sclerae anict joaquin. NECK: Supple, no thyromegaly or masses. LUNGS: Clear bilaterally. Respiratory effort is reasonable. CARDIAC: S1, S2. ABDOMEN: Soft. EXTREMITIES: No clubbing, cyanosis or edema. SKIN: He is noted to have a wound in the right buttock as well as the left hip area. NEUROLOGIC: He is oriented x 3. LABORATORY DATA: He is growing out MRSA inside of the abscesses that were I and D'd. His pelvic CAT scan notes ____ subcutaneous edema and cellulitis involving the subcutaneous soft tissue of the late ral left pelvis. ASSESSMENT: Abscess with cellulitis of the buttock with methicillin-resistant Staphylococcus aureus. PLAN: Continue IV antibiotics. Attain an ID consult. Continue surgical followup. In the meantime, I will discontinue his IV fluids and continue while continuing the IV antibiotics. I will also trish in serum immunoglobulin levels and hemoglobin A1c. Yang Callahan MD cc: [id number] TT: 07/11/2016 10:36:17 Confirmation # [id number] Dictation # [id number] dc 07/11/2016 11:25:25
--- NOTE | 2016-07-11 18:54 | CON ---
DATE: 07/11/2016 The patient seen in room 560, bed 2 earlier today. CHIEF COMPLAINT: Buttocks pain times several days. HISTORY OF PRESENT ILLNESS: This is a 25-year-old male with past medical history significant for chr onic back pain. The patient was seen in the Emergency Room on 07/08 with a diagnosis of normal skin in tegrity and ____ no significant ____ back pain except for the chronic back pain. He has lesions on h is buttocks but had incision and drainage and grew MRSA. Infectious disease doctor consultation requ ested. The patient states he is doing better. He still has the buttocks pain where the 2 lesions we re. He did have fevers on admission and he was tachycardic. PAST MEDICAL HISTORY: Significant for chronic back pain. PAST SURGICAL HISTORY: Noncontributory. ALLERGIES: The patient has no known allergies. MEDICATIONS AT HOME: Unknown. No known medication. PHYSICAL EXAMINATION: GENERAL: He is sitting in bed, answering questions appropriately. VITAL SIGNS: Temperature of 98, T-max was 100.2 with respiratory rate of 18 and it was up to 20. He art rate of ____ today, it was up to 105. Blood pressure of 115/60. HEENT: Unremarkable. NECK: Supple. LUNGS: Decreased breath sounds. HEART: Normal S1, S2. ABDOMEN: Soft, nontender. No rebound, no guarding. The patient's buttocks examination reveals 2 le sions that appear to be draining. LABORATORY EXAMINATION: Reveals the white count of 20,000 initially, had come down to 8.7. Hemoglob in of 13. Chemistries are noted with a BUN of 9, creatinine of 1.0. Urinalysis is noted and toxicol ogy is noted. Serology is RPR is nonreactive. Microbiology reveals MRSA from the right buttocks and another MRSA from buttocks. It is sensitive to tetracycline and Bactrim and GAYATHRI of the MRSA to vanc omycin 0.5. The same is true with the second MRSA culture, sensitive to Bactrim and tetracycline. T he patient had a pelvic CAT scan which showed edema and cellulitis involving the subcutaneous soft ti ssue of the lateral left pelvis and patient also seen by Dr. Callahan today. His note was reviewed. ASSESSMENT AND PLAN: A 25-year-old male with sepsis with a fever, tachycardia, leukocytosis secondar y to methicillin-resistant Staphylococcus aureus buttocks and abscess which now is drained. Dr. Fermin Sena' ____ report is reviewed. Currently on vancomycin. We will check on a methicillin-resi stant Staphylococcus aureus nasal screen and we recommend human immunodeficiency virus test because o f his age and RPR and will make further recommendations. May be able to switch to p.o. doxycycline u perry discharge at 100 mg p.o. b.i.d. 5-7 days upon discharge. Robert Romano MD cc: [id number] TT: 07/11/2016 18:53:43 Confirmation # [id number] Dictation # [id number] sn
[2016-07-12] MEDS: Vancomycin 1gm in NS 250ml 250 ML IVPB SCH (01:00)
[2016-07-12 07:53] VITALS: BP 105/70; PULSE 74; TEMP 97.7; O2SAT 100
--- NOTE | 2016-07-12 10:11 | CP.PCM.DIS ---
<Mark Contreras - Last Filed: 07/12/16 10:50> Provider - Provider Date of Admission: 07/08/16 03:48 Attending physician: Yang Callahan MD Consults: Surgery - Dr. Sena ID - Dr. Romano Time Spent in preparation of Discharge (in minutes): 30 Hospital Course - Lab Results Lab Results: Micro Results 07/08/16 06:40 Abscess - Abscess Gram Stain - Final 07/08/16 06:40 Abscess - Abscess Wound Culture - Final Methicillin Resistant S Aureus 07/09/16 10:00 Abscess - Buttock-Right Gram Stain - Final 07/09/16 10:00 Abscess - Buttock-Right Wound Culture - Final Methicillin Resistant S Aureus 07/08/16 05:00 Urine,Clean Catch Urine Culture - Final No Growth (<1,000 CFU/ML) Most Recent Lab Values WBC 8.7 10^3/ul (4.5-11.0) 07/11/16 06:00 RBC 4.34 10^6/uL (3.5-6.1) 07/11/16 06:00 Hgb 13.6 gm/dL (14.0-18.0) L 07/11/16 06:00 Hct 39.8 % (42.0-52.0) L 07/11/16 06:00 MCV 91.7 fL (80.0-105.0) 07/11/16 06:00 MCH 31.3 pg (25.0-35.0) 07/11/16 06:00 MCHC 34.2 g/dl (31.0-37.0) 07/11/16 06:00 RDW 12.9 % (11.5-14.5) 07/11/16 06:00 Plt Count 242 10^3/uL (120.0-450.0) 07/11/16 06:00 MPV 9.5 fl (7.0-11.0) 07/11/16 06:00 Gran % 62.7 % (50.0-68.0) 07/10/16 07:06 Lymph % (Auto) 21.0 % (22.0-35.0) L 07/10/16 07:06 [place] % (Auto) 10.9 % (1.0-6.0) H 07/10/16 07:06 Eos % (Auto) 4.9 % (1.5-5.0) 07/10/16 07:06 Baso % (Auto) 0.5 % (0.0-3.0) 07/10/16 07:06 Gran # 5.95 (1.4-6.5) 07/10/16 07:06 Lymph # 2.0 (1.2-3.4) 07/10/16 07:06 [place] # 1.0 (0.1-0.6) H 07/10/16 07:06 Eos # 0.5 (0.0-0.7) 07/10/16 07:06 Baso # 0.05 K/mm3 (0.0-2.0) 07/10/16 07:06 Neutrophils % (Manual) 75 % (50.0-70.0) H 07/08/16 01:42 Band Neutrophils % 2 % (0-2) 07/08/16 01:42 Lymphocytes % (Manual) 16 % (22.0-35.0) L 07/08/16 01:42 Monocytes % (Manual) 7 % (1.0-6.0) H 07/08/16 01:42 Platelet Evaluation Normal (NORMAL) 07/08/16 01:42 pO2 30 mm/Hg (30-55) 07/08/16 01:42 VBG pH 7.35 (7.32-7.43) 07/08/16 01:42 VBG pCO2 51.0 (40-60) 07/08/16 01:42 VBG HCO3 28.2 mmol/l (21-28) H 07/08/16 01:42 VBG Total CO2 29.8 mmol.L (22-28) H 07/08/16 01:42 VBG O2 Sat (Calc) 59.0 % (40-65) 07/08/16 01:42 VBG Base Excess 1.7 mmol/L (0.0-2.0) 07/08/16 01:42 VBG Potassium 4.0 mmol/L (3.6-5.2) 07/08/16 01:42 Sodium 135.0 mmol/L (132-148) 07/08/16 01:42 Chloride 102.0 mmol/L (98-107) 07/08/16 01:42 Glucose 110 mg/dl (75-110) 07/08/16 01:42 Lactate 1.3 mmol/L (0.7-2.1) 07/08/16 01:42 FiO2 21.0 % 07/08/16 01:42 Sodium 141 mmol/L (132-148) 07/11/16 06:00 Potassium 4.0 mmol/L (3.6-5.0) 07/11/16 06:00 Chloride 105 mmol/L (95-110) 07/11/16 06:00 Carbon Dioxide 25 mmol/L (21-33) 07/11/16 06:00 Anion Gap 15 (10-20) 07/11/16 06:00 BUN 13 mg/dL (7-21) 07/11/16 06:00 Creatinine 1.0 mg/dL (0.5-1.4) 07/11/16 06:00 Est GFR ( Amer) > 60 07/11/16 06:00 Est GFR (Non-Af Amer) > 60 07/11/16 06:00 Random Glucose 87 mg/dL (70-110) 07/11/16 06:00 Calcium 9.1 mg/dL (8.4-10.5) 07/11/16 06:00 Total Bilirubin 0.4 mg/dL (0.2-1.3) 07/11/16 06:00 AST 23 U/L (15-59) 07/11/16 06:00 ALT 32 U/L (7-56) 07/11/16 06:00 Alkaline Phosphatase 49 U/L (38-133) 07/11/16 06:00 Total Protein 6.8 g/dL (5.8-8.3) 07/11/16 06:00 Albumin 3.5 g/dL (3.0-4.8) 07/11/16 06:00 Globulin 3.3 gm/dL 07/11/16 06:00 Albumin/Globulin Ratio 1.1 (1.1-1.8) 07/11/16 06:00 Venous Blood Potassium 4.0 mmol/L (3.6-5.2) 07/08/16 01:42 Urine Color Yellow (YELLOW) 07/08/16 05:00 Urine Appearance Clear (CLEAR) 07/08/16 05:00 Urine pH 6.0 (4.7-8.0) 07/08/16 05:00 Ur Specific [place] 1.020 (1.005-1.035) 07/08/16 05:00 Urine Protein Negative mg/dL (<30 mg/dL) 07/08/16 05:00 Urine Glucose (UA) Negative mg/dL (NEGATIVE) 07/08/16 05:00 Urine Ketones Trace mg/dL (NEGATIVE) H 07/08/16 05:00 Urine Blood Negative (NEGATIVE) 07/08/16 05:00 Urine Nitrate Negative (NEGATIVE) 07/08/16 05:00 Urine Bilirubin Negative (NEGATIVE) 07/08/16 05:00 Urine Urobilinogen 0.2 E.U./dL (<1 E.U./dL) 07/08/16 05:00 Ur Leukocyte Esterase Negative Hira/uL (NEGATIVE) 07/08/16 05:00 Urine Opiates Screen Positive (NEGATIVE) H 07/08/16 05:00 Urine Methadone Screen Negative (NEGATIVE) 07/08/16 05:00 Ur Barbiturates Screen Negative (NEGATIVE) 07/08/16 05:00 Ur Phencyclidine Scrn Negative (NEGATIVE) 07/08/16 05:00 Ur Amphetamines Screen Negative (NEGATIVE) 07/08/16 05:00 U Benzodiazepines Scrn Negative (NEGATIVE) 07/08/16 05:00 U Oth Cocaine Metabols Negative (NEGATIVE) 07/08/16 05:00 U Cannabinoids Screen Positive (NEGATIVE) H 07/08/16 05:00 RPR Nonreactive (NONREACTIVE) 07/11/16 08:30 - Hospital Course Hospital Course: Patient is a 25yo male with no significant past medical history that presented to the emergency room complaining of buttocks pain for 2-3 days prior to presentation. On evaluation, he was found to have multiple abscesses of the buttocks. He was febrile and had mild leukocytosis in the emergency room. The patient underwent and incision and draining of the the abscesses in the emergency room and was placed on vancomycin and unasyn. Blood cultures were negative, however wound cultures grew MRSA. The patient continued to receive IV vancomycin and hydrated with fluids. He remained afebrile and his leukocytosis resolved. The patient reported improvement of his pain and was agreeable to discharge home with PO antibiotics. He was subsequently discharge home on doxycyline 100mg PO BID for 5 days. He was instructed to return to the emergency room should his condition worsen or change in severity/quality. He was also instructed to follow up with his primary care doctor within 1 week of discharge. Discharge Exam - Head Exam Head Exam: ATRAUMATIC, NORMAL INSPECTION, NORMOCEPHALIC - Eye Exam Eye Exam: EOMI, PERRL. absent: Conjunctival injection, Scleral icterus - Respiratory Exam Respiratory Exam: Clear to PA & Lateral. absent: Rales, Rhonchi, Wheezes - Cardiovascular Exam Cardiovascular Exam: RRR, +S1, +S2. absent: Tachycardia, Diastolic murmur, Gallop, Rubs, Systolic Murmur - GI/Abdominal Exam GI & Abdominal Exam: Normal Bowel Sounds, Soft. absent: Distended, Firm, Guarding, Rebound, Rigid, Tenderness - Neurological Exam Neurological exam: Alert, CN II-XII Intact, Normal Gait, Oriented x3 - Psychiatric Exam Psychiatric exam: Normal Affect, Normal Mood - Skin Skin Exam: Dry, Intact, Normal Color, Warm Additional comments: bilateral buttock abscess s/p I&D; erythematous; draining; dressings changed by wound care/surgery team Discharge Plan - Discharge Medications Prescriptions: Doxycycline Hyclate [Doryx] 100 mg PO BID #10 cap - Follow Up Plan Condition: STABLE Disposition: HOME/ ROUTINE Instructions: MRSA (Methicillin Resistant Staphylococcus Aureus) (DC), Cellulitis (DC), Cigarette Smoking and Your Health (GEN), Acute Wound Care (DC) , Abscess (GEN) Additional Instructions: 1. Take the antibiotic prescribed to you as directed: Doxycycline 100mg by mouth twice a day for 5 days. 2. Clean and change your wound dressings daily. 3. Follow up with your primary medical doctor within 1 week of discharge. 4. Return to the emergency room should your condition worsen or change in severity. Referrals: Yang Callahan MD [Staff Provider] - Rolando Sena MD [Staff Provider] - <José Miguel Gu - Last Filed: 08/05/16 09:32> Provider - Provider Date of Admission: 07/08/16 03:48 Attending physician: Yang Callahan MD Hospital Course - Lab Results Lab Results: Micro Results 07/11/16 18:51 Naris MRSA Culture (Admit) - Final 07/08/16 06:40 Abscess - Abscess Gram Stain - Final 07/08/16 06:40 Abscess - Abscess Wound Culture - Final Methicillin Resistant S Aureus 07/09/16 10:00 Abscess - Buttock-Right Gram Stain - Final 07/09/16 10:00 Abscess - Buttock-Right Wound Culture - Final Methicillin Resistant S Aureus 07/08/16 05:00 Urine,Clean Catch Urine Culture - Final No Growth (<1,000 CFU/ML) Most Recent Lab Values WBC 8.7 10^3/ul (4.5-11.0) 07/11/16 06:00 RBC 4.34 10^6/uL (3.5-6.1) 07/11/16 06:00 Hgb 13.6 gm/dL (14.0-18.0) L 07/11/16 06:00 Hct 39.8 % (42.0-52.0) L 07/11/16 06:00 MCV 91.7 fL (80.0-105.0) 07/11/16 06:00 MCH 31.3 pg (25.0-35.0) 07/11/16 06:00 MCHC 34.2 g/dl (31.0-37.0) 07/11/16 06:00 RDW 12.9 % (11.5-14.5) 07/11/16 06:00 Plt Count 242 10^3/uL (120.0-450.0) 07/11/16 06:00 MPV 9.5 fl (7.0-11.0) 07/11/16 06:00 Gran % 62.7 % (50.0-68.0) 07/10/16 07:06 Lymph % (Auto) 21.0 % (22.0-35.0) L 07/10/16 07:06 [place] % (Auto) 10.9 % (1.0-6.0) H 07/10/16 07:06 Eos % (Auto) 4.9 % (1.5-5.0) 07/10/16 07:06 Baso % (Auto) 0.5 % (0.0-3.0) 07/10/16 07:06 Gran # 5.95 (1.4-6.5) 07/10/16 07:06 Lymph # 2.0 (1.2-3.4) 07/10/16 07:06 [place] # 1.0 (0.1-0.6) H 07/10/16 07:06 Eos # 0.5 (0.0-0.7) 07/10/16 07:06 Baso # 0.05 K/mm3 (0.0-2.0) 07/10/16 07:06 Neutrophils % (Manual) 75 % (50.0-70.0) H 07/08/16 01:42 Band Neutrophils % 2 % (0-2) 07/08/16 01:42 Lymphocytes % (Manual) 16 % (22.0-35.0) L 07/08/16 01:42 Monocytes % (Manual) 7 % (1.0-6.0) H 07/08/16 01:42 Platelet Evaluation Normal (NORMAL) 07/08/16 01:42 pO2 30 mm/Hg (30-55) 07/08/16 01:42 VBG pH 7.35 (7.32-7.43) 07/08/16 01:42 VBG pCO2 51.0 (40-60) 07/08/16 01:42 VBG HCO3 28.2 mmol/l (21-28) H 07/08/16 01:42 VBG Total CO2 29.8 mmol.L (22-28) H 07/08/16 01:42 VBG O2 Sat (Calc) 59.0 % (40-65) 07/08/16 01:42 VBG Base Excess 1.7 mmol/L (0.0-2.0) 07/08/16 01:42 VBG Potassium 4.0 mmol/L (3.6-5.2) 07/08/16 01:42 Sodium 135.0 mmol/L (132-148) 07/08/16 01:42 Chloride 102.0 mmol/L (98-107) 07/08/16 01:42 Glucose 110 mg/dl (75-110) 07/08/16 01:42 Lactate 1.3 mmol/L (0.7-2.1) 07/08/16 01:42 FiO2 21.0 % 07/08/16 01:42 Sodium 141 mmol/L (132-148) 07/11/16 06:00 Potassium 4.0 mmol/L (3.6-5.0) 07/11/16 06:00 Chloride 105 mmol/L (95-110) 07/11/16 06:00 Carbon Dioxide 25 mmol/L (21-33) 07/11/16 06:00 Anion Gap 15 (10-20) 07/11/16 06:00 BUN 13 mg/dL (7-21) 07/11/16 06:00 Creatinine 1.0 mg/dL (0.5-1.4) 07/11/16 06:00 Est GFR ( Amer) > 60 07/11/16 06:00 Est GFR (Non-Af Amer) > 60 07/11/16 06:00 Random Glucose 87 mg/dL (70-110) 07/11/16 06:00 Calcium 9.1 mg/dL (8.4-10.5) 07/11/16 06:00 Total Bilirubin 0.4 mg/dL (0.2-1.3) 07/11/16 06:00 AST 23 U/L (15-59) 07/11/16 06:00 ALT 32 U/L (7-56) 07/11/16 06:00 Alkaline Phosphatase 49 U/L (38-133) 07/11/16 06:00 Total Protein 6.8 g/dL (5.8-8.3) 07/11/16 06:00 Albumin 3.5 g/dL (3.0-4.8) 07/11/16 06:00 Globulin 3.3 gm/dL 07/11/16 06:00 Albumin/Globulin Ratio 1.1 (1.1-1.8) 07/11/16 06:00 Venous Blood Potassium 4.0 mmol/L (3.6-5.2) 07/08/16 01:42 Urine Color Yellow (YELLOW) 07/08/16 05:00 Urine Appearance Clear (CLEAR) 07/08/16 05:00 Urine pH 6.0 (4.7-8.0) 07/08/16 05:00 Ur Specific [place] 1.020 (1.005-1.035) 07/08/16 05:00 Urine Protein Negative mg/dL (<30 mg/dL) 07/08/16 05:00 Urine Glucose (UA) Negative mg/dL (NEGATIVE) 07/08/16 05:00 Urine Ketones Trace mg/dL (NEGATIVE) H 07/08/16 05:00 Urine Blood Negative (NEGATIVE) 07/08/16 05:00 Urine Nitrate Negative (NEGATIVE) 07/08/16 05:00 Urine Bilirubin Negative (NEGATIVE) 07/08/16 05:00 Urine Urobilinogen 0.2 E.U./dL (<1 E.U./dL) 07/08/16 05:00 Ur Leukocyte Esterase Negative Hira/uL (NEGATIVE) 07/08/16 05:00 Urine Opiates Screen Positive (NEGATIVE) H 07/08/16 05:00 Urine Methadone Screen Negative (NEGATIVE) 07/08/16 05:00 Ur Barbiturates Screen Negative (NEGATIVE) 07/08/16 05:00 Ur Phencyclidine Scrn Negative (NEGATIVE) 07/08/16 05:00 Ur Amphetamines Screen Negative (NEGATIVE) 07/08/16 05:00 U Benzodiazepines Scrn Negative (NEGATIVE) 07/08/16 05:00 U Oth Cocaine Metabols Negative (NEGATIVE) 07/08/16 05:00 U Cannabinoids Screen Positive (NEGATIVE) H 07/08/16 05:00 RPR Nonreactive (NONREACTIVE) 07/11/16 08:30 T.pallidum Ab (FTA-ABS) Reactive (Nonreactive) H 07/11/16 08:30 HIV 1&2 Ag/Ab, 4th Gen Nonreactive (Nonreactive) 07/11/16 08:30 Attending/Attestation - Attestation I have personally seen and examined this patient.: Yes I have fully participated in the care of the patient.: Yes I have reviewed all pertinent clinical information, including history, physical exam and plan: Yes Notes (Text): 08/05/16 09:32 Medical record note made by the resident after discussion with my direction and input after the patient was personally seen and examined by me. I have reviewed the chart and agree that the record accurately reflects by personal performance of the history, physical exam, data review, and medical decision-making, in the course for the patient. I have also personally directed the plan of care.
--- NOTE | 2016-07-12 14:13 | PN ---
DATE: 07/12/2016 The patient is in bed in no acute distress, nontoxic. PHYSICAL EXAMINATION: VITAL SIGNS: Temperature is 98, blood pressure is 105/70, respiratory rate of 16. HEENT: Unremarkable. NECK: Supple. LUNGS: Have decreased breath sounds. HEART: Normal S1, S2. ABDOMEN: Soft, nontender. No organomegaly, no rebound. BUTTOCKS: Noted. LABORATORY EXAMINATION: Noted. Microbiology is noted. ASSESSMENT AND PLAN: A 25-year-old male seen early this morning in sepsis with fever and tachycardia , leukocytosis with methicillin-resistant Staphylococcus aureus buttocks abscess, status post incisio n and drainage, may complete with p.o. doxycycline as discussed with the resident rotating with Dr. Gerald yates. The patient should have followup as outpatient closely. Robert Romano MD cc: 350 TT: 07/12/2016 14:13:39 Confirmation # [id number] Dictation # [id number]
== END 2016-07-12 14:09 | disposition home or self-care (01) | DRG 872 ==
LOC: ED 23:58 → ERH 07-08 03:48 → 5RNO 07-08 05:56
PROVIDERS: ADMIT Internal Medicine; ATTEND Internal Medicine
PROC: 0H98XZX Drainage of Buttock Skin, External Approach, Diagnostic (ICD-10-PCS; principal; 2016-07-08)
DX: A41.9 Sepsis, unspecified organism (principal); L02.31 Cutaneous abscess of buttock; L03.317 Cellulitis of buttock; B95.62 Methicillin resistant Staphylococcus aureus infection as the cause of diseases classified elsewhere; Z87.891 Personal history of nicotine dependence

== ENCOUNTER 2016-08-30 22:47 | Emergency (ER) | payer OTHER ==
[2016-08-30 23:03] VITALS: BMI 23.1
[2016-08-30 23:04] VITALS: BP 129/77; RESP 16
[2016-08-31] MEDS ORDERED: Naproxen 550 mg Tab PO STA (01:13)
[2016-08-31] MEDS ORDERED: Tmp-Smz 800 mg-160 mg DS Tab PO STA (01:13)
[2016-08-31 01:27] VITALS: PULSE 94; TEMP 99; O2SAT 99
--- NOTE | 2016-09-03 16:32 | ED PDOC ---
Arrival/HPI - General Chief Complaint: Abnormal Skin Integrity Time Seen by Provider: 08/30/16 23:14 Historian: Patient - History of Present Illness Narrative History of Present Illness (Text): 08/30/16 00:27 Patient complains of a painful mass of gradually increasing size of the L buttock for the past few days. Otherwise: (-) foreign body, (-) fever, (-) chills. (-) recent antibiotic use. Past Medical History - Provider Review Nursing Documentation Reviewed: Yes - Tetanus Immunization Tetanus Immunization: Up to Date - Cardiac Hx Cardiac Disorders: No - Pulmonary Hx Respiratory Disorders: Yes (SMOKED 5/DAY CIGARETTES QUIT May) - Neurological Hx Neurological Disorder: No - HEENT Hx HEENT Disorder: No - Renal Hx Renal Disorder: No - Endocrine/Metabolic Hx Endocrine Disorders: No - Hematological/Oncological Hx Blood Disorders: Yes (CELLULITIS ABSCESS TO BILATERAL BUTTOCKS) - Integumentary Hx Dermatological Disorder: Yes Other/Comment: 07-08-16 BILATERAL BUTTOCKS CELLULITIS/ABSCESS.I/D. - Musculoskeletal/Rheumatological Hx Falls: Yes (FROM PLAYING BACKETBALL) - Gastrointestinal Hx Gastrointestinal Disorders: No - Genitourinary/Gynecological Hx Genitourinary Disorders: No - Psychiatric Hx Psychophysiologic Disorder: Yes (SMOKED CIGARETES/DRANK ALCOHOL SOCIALLY.) Hx Substance Use: No Family/Social History - Physician Review Nursing Documentation Reviewed: Yes Family/Social History: No Known Family HX Smoking Status: Never Smoked Hx Alcohol Use: No Hx Substance Use: No Allergies/Home Meds Allergies/Adverse Reactions: Allergies No Known Allergies Allergy (Verified 07/08/16 11:45) Review of Systems - Review of Systems Constitutional: Normal. absent: Fatigue, Weight Change, Fevers Musculoskeletal: Normal. absent: Arthralgias, Back Pain, Neck Pain Skin: Normal, Abscess. absent: Rash, Pruritis, Skin Lesions Physical Exam - Physical Exam Narrative Physical Exam (Text): 08/30/16 00:27 GENERAL APPEARANCE: Patient is awake, alert, oriented x 3, in no acute distress. Skin: warm and dry, +3 x 2 erythematous, tender, non-fluctuant, indurated abscess to the L lateral buttock with no surrounding cellulitis. Pulmonary: lungs clear, no rhonchi, no wheezing. Cardiac: regular rate and rhythm, no murmur, no gallop. Abdomen: soft nontender. Extremities: no deformity, full range of motion, no tenderness. Vital Signs Temp Pulse Resp BP Pulse Ox 08/31/16 01:27 94 H 16 99 08/31/16 01:26 99.0 F 95 H 16 98 08/30/16 23:04 99 F 96 H 16 129/77 97 Medical Decision Making ED Course and Treatment: 08/30/16 00:27 25 yo M presents with an abscess to the L buttock. Prior to procedure "time out" was called in order to confirm the correct patient and procedure. Through aseptic technique, 18 gauge needle was introduced into the abscess and produced no purulent material. Clean dressing was applied. Patient advised that considering his exam and that no pus was extracted from the abscess at this time, that he apply warm compresses at home, take Rx antibiotics and follow up as an outpatient. Given naprosyn po, keflex po and bactrim po. Patient states he fully agrees with and understands discharge instructions. States that he agrees with the plan and disposition. Verbalized and repeated discharge instructions and plan. I have given the patient opportunity to ask any additional questions. Follow up with referral provided in 1-2 days without fail. Advised to take medication as prescribed. Return to the emergency room at any time for any new or worsening symptoms. - Medication Orders Current Medication Orders: Discontinued Medications Cephalexin Monohydrate (Keflex) 500 mg PO STAT STA PRN Reason: Protocol Stop: 08/31/16 01:14 Last Admin: 08/31/16 01:25 Dose: 500 mg Naproxen (Anaprox Ds) 550 mg PO ONCE STA Stop: 08/31/16 01:14 Last Admin: 08/31/16 01:25 Dose: 550 mg Trimethoprim/Sulfamethoxazole (Bactrim Ds Tab) 2 tab PO STAT STA PRN Reason: Protocol Stop: 08/31/16 01:14 Last Admin: 08/31/16 01:25 Dose: 2 tab - PA / TELEVISION PRODUCTION ASSISTANT / Resident Statement / has reviewed & agrees with the documentation as recorded. Disposition/Present on Arrival - Present on Arrival Any Indicators Present on Arrival: No History of DVT/PE: No History of Uncontrolled Diabetes: No Urinary Catheter: No History of Decub. Ulcer: No History Surgical Site Infection Following: None - Disposition Have Diagnosis and Disposition been Completed?: Yes Diagnosis: Abscess Disposition: HOME/ ROUTINE Disposition Time: 01:00 Patient Plan: Discharge Condition: GOOD Discharge Instructions (ExitCare): Abscess (ED) Print Language: YEMENI Prescriptions: Cephalexin [Keflex] 500 mg PO Q6 #28 capsule Naproxen 500 mg PO BID #30 tab Sulfamethoxazole/Trimethoprim [Bactrim DS 800 mg-160 mg] 2 tab PO BID #28 tab Referrals: Libertad Oro MD [Staff Provider] - Follow up with primary Forms: WORK NOTE
== END 2016-08-31 01:27 | disposition home or self-care (01) ==
LOC: ED 22:47
DX: L02.31 Cutaneous abscess of buttock (principal); Z87.891 Personal history of nicotine dependence